=== PATIENT | female | born 1990 | race Caucasian/White ===

== ENCOUNTER 2018-10-12 19:10 | Inpatient (IN) | payer OTHER ==
[2018-10-12] MEDS ORDERED: Sodium Chloride 0.9% 1,000 ML IV STA (20:43)
[2018-10-12 21:12] LABS: BASO % 0.2 % (0.0-2.0); EOS % 0.3 % (0.0-4.0); LYMPH # 1.5 K/uL (1.0-4.3); LYMPH % 16.4 % (20.0-40.0); MEAN CELL VOLUME 83.1 fl (81.0-99.0); MEAN CORPUSCULAR HGB CONC 33.8 g/dL (33.0-37.0); MEAN PLATELET VOLUME 7.8 fl (7.2-11.7); MONO # 0.3 K/uL (0.0-0.8); MONO % 3.6 % (0.0-10.0); NEUT # 7.3 K/uL (1.8-7.0); NEUT % 79.5 % (50.0-75.0); NRBC % 0.1 % (0.0-0.0); RBC 4.63 Mil/uL (3.80-5.20); RED CELL DISTRIBUTION WIDTH 12.1 % (11.5-14.5); WHITE BLOOD COUNT 9.2 K/uL (4.8-10.8)
[2018-10-12 21:23] LABS: BLOOD UREA NITROGEN 7 mg/dl (7-17); CALCIUM 9.3 mg/dL (8.4-10.2); GFR NON-AFRICAN AMERICAN > 60
--- NOTE | 2018-10-12 21:44 | ED PDOC ---
HPI: Abdomen Time Seen by Provider: 10/12/18 19:59 Chief Complaint (Nursing): Abdominal Pain Chief Complaint (Provider): Abdominal Pain History Per: Patient History/Exam Limitations: no limitations Onset/Duration Of Symptoms: Days (x3) Current Symptoms Are (Timing): Still Present Additional Complaint(s): 28 year old female, approximately 4 weeks , is sent from [facility] for an evaluation after recent diagnosis of ectopic on 10/09/18 with initial BETA at 3587. Patient was prescribed Methotrexate on 10/10/18 with BETA noted at 4613. Today, patient reports worsening abdominal pain, vomiting, and heavy bleeding then advised to go to ED for repeat US and labs. Otherwise, she offers no further medical complaints. OBEDIENCE TRAINER: Dr. Velia Clayton [phone] Past Medical History Reviewed: Historical Data, Nursing Documentation, Vital Signs Vital Signs: Last Vital Signs Temp 98.5 F 10/12/18 19:45 Pulse 99 H 10/12/18 19:45 Resp 17 10/12/18 19:45 BP 102/67 10/12/18 19:45 Pulse Ox 98 10/12/18 19:45 Primary Care Provider: Velia Clayton - Medical History PMH: No Chronic Diseases - Surgical History Surgical History: No Surg Hx - Family History Family History: States: Unknown Family Hx - Home Medications Home Medications: Ambulatory Orders Medication Instructions Recorded No Known Home Med 10/12/18 - Allergies Allergies/Adverse Reactions: Allergies Allergy/AdvReac Type Severity Reaction Status Date / Time No Known Allergies Allergy Verified 10/12/18 20:32 Review of Systems ROS Statement: Except As Marked, All Systems Reviewed And Found Negative Gastrointestinal: Positive for: Vomiting, Abdominal Pain Genitourinary Female: Positive for: Vaginal Bleeding (heavy) Physical Exam - Reviewed Nursing Documentation Reviewed: Yes Vital Signs Reviewed: Yes - Physical Exam Appears: Positive for: No Acute Distress Cardiovascular/Chest: Positive for: Regular Rate, Rhythm, Chest Non Tender. Negative for: Murmur, Bradycardia, Tachycardia Respiratory: Positive for: Normal Breath Sounds. Negative for: Wheezing, Respiratory Distress Pulses-Radial (L): 2+ Pulses-Radial (R): 2+ Gastrointestinal/Abdominal: Positive for: Normal Exam, Soft. Negative for: Tenderness Pelvic Exam: Positive for: Other (pelvic deferred) Neurological/Psych: Positive for: Awake, Alert, Normal Tone, Symmetric/Intact Strength. Negative for: Motor/Sensory Deficits - Laboratory Results Result Diagrams: 10/12/18 21:00 10/12/18 21:00 - ECG O2 Sat by Pulse Oximetry: 98 (RA) Pulse Ox Interpretation: Normal Medical Decision Making Medical Decision Making: Time: 2033 Initial Plan: work up for ectopic after Methotrexate. * Labs * IV fluids * Tylenol PO * Zofran inj IVP * US 1st trimester 2312 US OB FINDINGS: GESTATION: No identification of IUP. ENDOMETRIUM: The endometrial thickness is normal measuring 5.0 mm in AP dimension. UTERUS: Unremarkable. No myometrial mass. CERVIX: Closed. Unremarkable. OVARIES: A 1.4 cm hyperechoic hypervascular ring with an anechoic center is seen in the right adnexal region thought compatible with an ectopic gestation. A 2.1 x 1.9 x 2.0 cm left ovarian simple cyst is noted. Several tiny right ovarian follicles are identified. No suspicious mass. FREE FLUID: No free fluid. IMPRESSION: No evidence of IUP. Findings thought compatible with a 1.4 cm right adnexal ectopic gestation. 2.1 cm simple left ovarian cyst. Several tiny right ovarian follicles are noted. Scribe Attestation: Documented by Telma Solomon, acting as a scribe for Collette Abernathy MD. Provider Scribe Attestation: All medical record entries made by the Scribe were at my direction and personally dictated by me. I have reviewed the chart and agree that the record accurately reflects my personal performance of the history, physical exam, medical decision making, and the department course for this patient. I have also personally directed, reviewed, and agree with the discharge instructions and disposition. Disposition - Disposition
[2018-10-13] MEDS ORDERED: Propofol 10 mg/ml Inj (20 ML) ONE (00:40)
[2018-10-13] MEDS ORDERED: Midazolam 2 MG/2 ML VIAL ONE (00:40)
[2018-10-13] MEDS ORDERED: Rocuronium 10 mg/ml (5 ml) ONE (00:40)
[2018-10-13] MEDS ORDERED: Succinylcholine 200 mg/10 ml Inj IV ONE (00:41)
--- NOTE | 2018-10-13 00:45 | CP.PCM.HP ---
<Vijay Barboza - Last Filed: 10/13/18 00:53> History of Present Illness - History of Present Illness History of Present Illness: 28 y/o F, , approximately 4 weeks , sent by [facility] for evaluation and management of ectopic which was diagnosed on 10/09/18. Initial BETA at 3587. Patient was prescribed Methotrexate on 10/10/18 with BETA noted at 4613. Today B HCG is 5995. Today rround 5 pm patient started having right sided lower abdominal pain, constant, 10/10 with associated nausea, vomiting, chills and vaginal bleding. Patient called [facility] office and was advised to come to ER. Denies fever, vaginal discharge, urinary symptoms, dizziness, CP or SOB. DIRECTOR PUBLIC POLICY: Dr. Velia Clayton [phone] PMHx: Denies PSHx: Denies Allergies: NKDA Meds: None Social Hx: Denies smoking/alcohol/drugs F/H: Mother: Thyroid disease ED course: VSS IV fluids Tylenol PO Zofran inj IVP US 1st trimester CBC, CMP unremarkable, BHCG 5995 US Pelvis No evidence of IUP. Findings thought compatible with a 1.4 cm right adnexal ectopic gestation. 2.1 cm simple left ovarian cyst. Several tiny right ovarian follicles are noted. Present on Admission - Present on Admission Any Indicators Present on Admission: No History of DVT/PE: No History of Uncontrolled Diabetes: No Urinary Catheter: No Decubitus Ulcer Present: No Review of Systems - Reproductive: Female Reproductive:Female: Abnormal Vaginal Bleeding Past Patient History - Past Medical History & Family History Past Medical History?: No - Past Social History Smoking Status: Never Smoked - PSYCHIATRIC Hx Emotional Abuse: No Hx Physical Abuse: No Hx Substance Use: No - SURGICAL HISTORY Hx Surgeries: No - ANESTHESIA Hx Anesthesia: No Meds Allergies/Adverse Reactions: Allergies Allergy/AdvReac Type Severity Reaction Status Date / Time No Known Allergies Allergy Verified 10/12/18 20:32 Physical Exam - Constitutional Appears: No Acute Distress - Eye Exam Eye Exam: EOMI, Normal appearance, PERRL - ENT Exam ENT Exam: Mucous Membranes Moist - Respiratory Exam Respiratory Exam: Clear to Auscultation Bilateral, NORMAL BREATHING PATTERN - Cardiovascular Exam Cardiovascular Exam: REGULAR RHYTHM, +S1, +S2 - GI/Abdominal Exam GI & Abdominal Exam: Guarding, Soft, Tenderness. absent: Distended - Expanded Rectal Exam Expanded Expanded Rectal Exam: Deferred - Extremities Exam Extremities exam: Positive for: normal inspection. Negative for: calf tenderness, pedal edema - Neurological Exam Neurological exam: Alert, Oriented x3 - Psychiatric Exam Psychiatric exam: Normal Affect, Normal Mood - Skin Skin Exam: Dry, Intact, Normal Color, Warm Results - Vital Signs Recent Vital Signs: Last Vital Signs Temp 98.5 F 10/12/18 19:45 Pulse 99 H 10/12/18 19:45 Resp 17 10/12/18 19:45 BP 102/67 10/12/18 19:45 Pulse Ox 98 10/12/18 23:50 - Labs Result Diagrams: 10/12/18 21:00 10/12/18 21:00 Labs: Laboratory Results - last 24 hr 10/12/18 10/12/18 10/12/18 21:00 21:00 21:00 WBC 9.2 RBC 4.63 Hgb 13.0 Hct 38.4 MCV 83.1 MCH 28.0 MCHC 33.8 RDW 12.1 Plt Count 335 MPV 7.8 Neut % (Auto) 79.5 H Lymph % (Auto) 16.4 L Hancock % (Auto) 3.6 Eos % (Auto) 0.3 Baso % (Auto) 0.2 Neut # (Auto) 7.3 H Lymph # (Auto) 1.5 Hancock # (Auto) 0.3 Eos # (Auto) 0.0 Baso # (Auto) 0.0 Sodium 139 Potassium 4.1 Chloride 100 Carbon Dioxide 27 Anion Gap 16 BUN 7 Creatinine 0.5 L Est GFR ( Amer) > 60 Est GFR (Non-Af Amer) > 60 Random Glucose 113 H Calcium 9.3 Beta HCG, Quant 5995.10 Blood Type Antibody Screen BBK History Checked 10/12/18 21:00 WBC RBC Hgb Hct MCV MCH MCHC RDW Plt Count MPV Neut % (Auto) Lymph % (Auto) Hancock % (Auto) Eos % (Auto) Baso % (Auto) Neut # (Auto) Lymph # (Auto) Hancock # (Auto) Eos # (Auto) Baso # (Auto) Sodium Potassium Chloride Carbon Dioxide Anion Gap BUN Creatinine Est GFR ( Amer) Est GFR (Non-Af Amer) Random Glucose Calcium Beta HCG, Quant Blood Type A POSITIVE Antibody Screen Negative BBK History Checked No verified bt Assessment & Plan - Assessment and Plan (Free Text) Assessment: 28 y/o F , approximately 4 weeks suspected ectopic , S/P Methotre xate Rx on 10/10/18 presents with severe abdominal pain. Plan: Right sided ectopic - S/P IV fluids, pain meds, Zofran for N/V - CBC, CMP, PT, PTT, B HCG - Plan for OR for surgery java software engineer: Dr. Velia Clayton <Velia Clayton - Last Filed: 10/13/18 02:53> History of Present Illness - History of Present Illness History of Present Illness: Attending note: 28 year old female at 6-7 weeks gestation with ectopic and comp laint of pain, nausea and vomiting after treatment with methotrexate on 10/10/18. Concern for ruptured ectopic . Results - Vital Signs Recent Vital Signs: Last Vital Signs Temp 98.5 F 10/12/18 19:45 Pulse 99 H 10/12/18 19:45 Resp 17 10/12/18 19:45 BP 102/67 10/12/18 19:45 Pulse Ox 98 10/12/18 23:50 - Labs Result Diagrams: 10/12/18 21:00 10/12/18 21:00 Labs: Laboratory Results - last 24 hr 10/12/18 10/12/18 10/12/18 21:00 21:00 21:00 WBC 9.2 RBC 4.63 Hgb 13.0 Hct 38.4 MCV 83.1 MCH 28.0 MCHC 33.8 RDW 12.1 Plt Count 335 MPV 7.8 Neut % (Auto) 79.5 H Lymph % (Auto) 16.4 L Hancock % (Auto) 3.6 Eos % (Auto) 0.3 Baso % (Auto) 0.2 Neut # (Auto) 7.3 H Lymph # (Auto) 1.5 Hancock # (Auto) 0.3 Eos # (Auto) 0.0 Baso # (Auto) 0.0 Sodium 139 Potassium 4.1 Chloride 100 Carbon Dioxide 27 Anion Gap 16 BUN 7 Creatinine 0.5 L Est GFR ( Amer) > 60 Est GFR (Non-Af Amer) > 60 Random Glucose 113 H Calcium 9.3 Beta HCG, Quant 5995.10 Blood Type Antibody Screen BBK History Checked 10/12/18 21:00 WBC RBC Hgb Hct MCV MCH MCHC RDW Plt Count MPV Neut % (Auto) Lymph % (Auto) Hancock % (Auto) Eos % (Auto) Baso % (Auto) Neut # (Auto) Lymph # (Auto) Hancock # (Auto) Eos # (Auto) Baso # (Auto) Sodium Potassium Chloride Carbon Dioxide Anion Gap BUN Creatinine Est GFR ( Amer) Est GFR (Non-Af Amer) Random Glucose Calcium Beta HCG, Quant Blood Type A POSITIVE Antibody Screen Negative BBK History Checked No verified bt
[2018-10-13] MEDS ORDERED: Methylene Blue 10 mg/mL(10ml) IV ONE (01:03)
[2018-10-13] MEDS ORDERED: Lactated Ringer's 1,000 ML IV ONE (01:09)
[2018-10-13] MEDS ORDERED: Neostigmine 1:1000 (1 mg/ml) Inj ONE (02:12)
[2018-10-13] MEDS ORDERED: HYDROmorphone 0.5 mg/0.5 ml ISec IVP PRN (02:36)
[2018-10-13] MEDS ORDERED: Lactated Ringer's 1,000 ML IV SCH ×2 (03:00→05:00)
[2018-10-13] MEDS ORDERED: Oxycodone/Acetaminophen 5/325 mg Tab PO PRN (04:53)
[2018-10-13 08:37] VITALS: BP 105/69
--- NOTE | 2018-10-13 09:00 | US ---
Date of service: 10/12/2018 PROCEDURE: HISTORY: f/u from ectopic preg s/p methotrexate COMPARISON: TECHNIQUE: FINDINGS: The uterus measures 5.4 x 2.7 x 3.1 centimeters in the endometrium measures 5 millimeters. The left ovary measures 4.0 x 2.8 x 3.5 centimeters. There is a 2.1 centimeter left ovarian cyst. The right ovary measures 3.1 x 3.2 centimeters. 1.4 centimeter hypoechoic hypervascular ring with an anechoic center in the right adnexal region possibly representing an ectopic . No evidence of intrauterine . IMPRESSION: As above.
--- NOTE | 2018-10-13 11:29 | CP.PCM.DIS ---
Provider - Provider Date of Admission: 10/12/18 23:14 Attending physician: Velia Clayton Time Spent in preparation of Discharge (in minutes): 30 Diagnosis - Discharge Diagnosis (1) Ectopic Status: Acute Comment: Right adnexal ectopic . S/P rigth salpingectomy 10/13/18 - laparoscopic Hospital Course - Lab Results Lab Results: Most Recent Lab Values WBC 9.2 K/uL (4.8-10.8) 10/12/18 21:00 RBC 4.63 Mil/uL (3.80-5.20) 10/12/18 21:00 Hgb 13.0 g/dL (12.0-16.0) 10/12/18 21:00 Hct 38.4 % (34.0-47.0) 10/12/18 21:00 MCV 83.1 fl (81.0-99.0) 10/12/18 21:00 MCH 28.0 pg (27.0-31.0) 10/12/18 21:00 MCHC 33.8 g/dL (33.0-37.0) 10/12/18 21:00 RDW 12.1 % (11.5-14.5) 10/12/18 21:00 Plt Count 335 K/uL (130-400) 10/12/18 21:00 MPV 7.8 fl (7.2-11.7) 10/12/18 21:00 Neut % (Auto) 79.5 % (50.0-75.0) H 10/12/18 21:00 Lymph % (Auto) 16.4 % (20.0-40.0) L 10/12/18 21:00 Foster % (Auto) 3.6 % (0.0-10.0) 10/12/18 21:00 Eos % (Auto) 0.3 % (0.0-4.0) 10/12/18 21:00 Baso % (Auto) 0.2 % (0.0-2.0) 10/12/18 21:00 Neut # (Auto) 7.3 K/uL (1.8-7.0) H 10/12/18 21:00 Lymph # (Auto) 1.5 K/uL (1.0-4.3) 10/12/18 21:00 Foster # (Auto) 0.3 K/uL (0.0-0.8) 10/12/18 21:00 Eos # (Auto) 0.0 K/uL (0.0-0.7) 10/12/18 21:00 Baso # (Auto) 0.0 K/uL (0.0-0.2) 10/12/18 21:00 Sodium 139 mmol/l (132-148) 10/12/18 21:00 Potassium 4.1 MMOL/L (3.6-5.0) 10/12/18 21:00 Chloride 100 mmol/L (98-107) 10/12/18 21:00 Carbon Dioxide 27 mmol/L (22-30) 10/12/18 21:00 Anion Gap 16 (10-20) 10/12/18 21:00 BUN 7 mg/dl (7-17) 10/12/18 21:00 Creatinine 0.5 mg/dl (0.7-1.2) L 10/12/18 21:00 Est GFR ( Amer) > 60 10/12/18 21:00 Est GFR (Non-Af Amer) > 60 10/12/18 21:00 Random Glucose 113 mg/dL (65-105) H 10/12/18 21:00 Calcium 9.3 mg/dL (8.4-10.2) 10/12/18 21:00 Beta HCG, Quant 5995.10 mIU/mL 10/12/18 21:00 Blood Type A POSITIVE 10/12/18 21:00 Antibody Screen Negative 10/12/18 21:00 BBK History Checked No verified bt 10/12/18 21:00 - Hospital Course Hospital Course: 28 y/o F , approximately 4 weeks suspected ectopic , S/P Methotrexate Rx on 10/10/18 presented with severe abdominal pain. Patient was a febrile, tachycardic when she presented to the ED. Transvaginal U/S demonstrated ectopic in right adnexa. Beta- HC. Patient underwent Laparoscopic ectopic excision (right salpingectomy) on 10/13/[address] Clayton and Dr. Terrell. Patient tolerated procedure. Labs were within normal limits. Patient to follow up with Dr. Clayton within two weeks. Discharge Exam - Head Exam Head Exam: NORMOCEPHALIC - Eye Exam Eye Exam: Normal appearance - ENT Exam ENT Exam: Mucous Membranes Moist - Respiratory Exam Respiratory Exam: Clear to PA & Lateral, NORMAL BREATHING PATTERN, UNREMARKABLE. absent: Accessory Muscle Use, Chest Wall Tenderness, Decreased Breath Sounds, Prolonged Expiratory Phase, Rales, Rhonchi, Wheezes, Respiratory Distress, Stridor - Cardiovascular Exam Cardiovascular Exam: REGULAR RHYTHM, +S1, +S2 - GI/Abdominal Exam GI & Abdominal Exam: Normal Bowel Sounds, Soft, Unremarkable. absent: Distended, Firm, Guarding, Rebound, Rigid, Tenderness Additional comments: 3 incisions noted on abdomen. Clean, dry and intact. No drainage. Steri strips in place. - Neurological Exam Neurological exam: Alert, Oriented x3 - Psychiatric Exam Psychiatric exam: Normal Affect, Normal Mood - Skin Skin Exam: Dry, Intact, Normal Color, Warm Discharge Plan - Follow Up Plan Condition: GOOD Disposition: HOME/ ROUTINE Patient education suggested?: Yes Additional Instructions: Follow up with CHIEF PROJECTIONIST within 2 weeks.
[2018-10-13 12:30] VITALS: PULSE 81; RESP 18; TEMP 99; O2SAT 98
--- NOTE | 2018-10-15 08:45 | OP ---
PROCEDURE DATE: 10/12/2018 PREOPERATIVE DIAGNOSIS: The patient is a 28-year-old G1, P0 female with 6 to 7 weeks' gestation with a right-sided ectopic concerning for rupture. POSTOPERATIVE DIAGNOSIS: Ruptured right ectopic . PROCEDURES: 1. Laparoscopic right salpingectomy. 2. Dilatation and curettage. 3. Chromopertubation. SURGEON: Velia Clayton MD HEALTH SAFETY SPECIALIST: David Terrell MD TYPE OF ANESTHESIA: General endotracheal anesthesia. ANESTHESIA ADMINISTERED BY: David Roth DO IV FLUIDS: 750 mL. URINE OUTPUT: 50 mL. ESTIMATED BLOOD LOSS: Less than 10 mL. COMPLICATIONS: None. SPECIMENS: 1. Right fallopian tube with ectopic . 2. D and C. OPERATIVE FINDINGS: 1. Uterine sound to 7.5 cm with an anteverted uterus. 2. Right ectopic , 2 to 3 cm. 3. Hemoperitoneum 50 mL. 4. Normal patent left fallopian tube. 5. Normal ovaries bilaterally. 6. Normal uterine contour. 7. Normal liver, stomach, and appendix. DESCRIPTION OF PROCEDURE: After proper content was obtained and all questions were answered, the patient was taken to the operating room at [facility]. Adequate general endotracheal anesthesia was administered by Dr. David Roth, and the patient was then placed in a modified dorsal lithotomy position using the Stephan stirrups. Prior to positioning and prior to induction of anesthesia, a set of bilateral lower extremity compression devices were applied to the patient's lower extremity . Correct positioning was performed to prevent nerve injury. An exam under anesthesia was performed by Dr. Clayton with notation of a mobile, small, normal uterus anteverted and fullness of the right adnexa. Sterile prep was performed with Betadine at the perineum and alcohol-based Chloraprep at the abdomen. The surgeon scrubbed and a sterile drape was performed in the usual fashion. Attention was directed to the perineum. A Moss catheter was placed atraumatically with return of clear yellow urine. The weighted speculum was placed in the posterior fornix of the vagina and a right-angled retractor to the anterior fornix. Cervix was visualized and the tenaculum was used to grasp the anterior lip of the cervix. The cervix was posteriorly dilated using the Hanks dilators to accommodate the HUMI manipulator. The uterine sound was performed with a notation of 7.5 cm. A gentle mechanical D and C was performed with notation of minimal endometrial tissue. The HUMI manipulator was placed to depth of 6.25 cm. The tenaculum was removed and all instruments were removed from the vagina. The patient was placed level and attention was directed to the abdomen. The surgeon changed gloves and attention was directed to the umbilicus. Two perforating towel clamps were placed bilaterally at the umbilicus and a 5 mm vertical incision was made at the inferior umbilical edge. The Veress needle was then used to place into the abdominal cavity. Carbon dioxide gas was applied with a notation of an opening pressure of 2 mmHg. The abdomen was insufflated to a pressure of 15 mmHg with notation of tympanic distention in all four quadrants. A 5 mm Optiview trocar was repaired with the camera. The Veress needle was removed and the 5 mm trocar was placed directly into the abdomen under direct visualization. The trocar obturator was removed as well as the bilateral perforating towel clamps and carbon dioxide gas was applied to the trocar. A camera was placed into the abdomen with notation of findings as noted above. The abdomen was surveyed and a normal liver edge and stomach were noted. The pelvis was visualized with a notation of free hemoperitoneum. The patient was then placed into a Trendelenburg and the uterus was elevated. The cul-de-sac was noted for 50 mL of hemoperitoneum with clot. The right fallopian tube was noted to have a right ectopic 2 to 3 cm at the mid to distal end of the fallopian tube. This was noted to be bleeding. The left fallopian tube was noted to be normal and the ovaries bilaterally were noted to be normal. No adhesions were noted in the pelvic cul-de-sac. The uterine contour was normal appearing as well. Two bilateral lower quadrant incisions were made and 5 mm trocars were placed bluntly under direct visualization. Through these lower quadrant bilateral trocars, the LigaSure cautery and the blunt grasper were used to elevate the end of the fallopian tube on the right. The fallopian tube was then cauterized and dissected using the LigaSure bipolar cautery. This was carried from the distal fallopian tube and towards the uterine wall along the mesosalpinx. Hemostasis was noted throughout the entire dissection and the fallopian tube was completely removed. The fallopian tube was then removed through the left lower quadrant trocar and it was noted that a small amount of tissue was expressed through the fallopian tube at this time. A grasper was used to then remove the small amount of tissue from the abdomen. These were all sent to pathology together. The left lower quadrant trocar was then replaced and pelvis was inspected. Copious irrigation was performed to remove any remaining hemoperitoneum. Methylene blue dye was diluted into 250 mL of fluid normal saline. This diluted dye was then placed through the HUMI manipulator and through the left fallopian tube. The left fallopian tube was noted to be patent with free flow of methylene blue dye. No adhesions were noted at the fallopian tube. The dye was then irrigated and suctioned out of the pelvis. The appendix was then inspected and noted to have a normal tip. All other structures appeared to be normal. The bilateral lower quadrant trocars were then removed under direct visualization. The abdomen was desufflated and the umbilical trocar was then removed as well. All incisions were then closed with 4-0 Monocryl, Steri-Strips, and Tegaderm. The patient was transferred to the recovery room in good condition and she will follow up with Dr. Velia Clayton in two weeks' time. All specimens were sent to pathology and no complications were noted. Velia Clayton MD
== END 2018-10-13 13:45 | disposition home or self-care (01) | DRG 817 ==
LOC: H.ER 19:10 → H.ERHOLD 23:14 → H.PEDS 10-13 04:43
PROVIDERS: ADMIT Obstetrics & Gynecology Reproductive Endocrinology; ATTEND Obstetrics & Gynecology Reproductive Endocrinology
PROC: 3E0P4GC Introduction of Other Therapeutic Substance into Female Reproductive, Percutaneous Endoscopic Approach (ICD-10-PCS; 2018-10-13)
PROC: 0UT54ZZ Resection of Right Fallopian Tube, Percutaneous Endoscopic Approach (ICD-10-PCS; principal; 2018-10-13 01:00)
PROC: 10D28ZZ Extraction of Products of Conception, Ectopic, Via Natural or Artificial Opening Endoscopic (ICD-10-PCS; 2018-10-13 01:00)
DX: O00.90 Unspecified ectopic pregnancy without intrauterine pregnancy (principal); K66.1 Hemoperitoneum; N83.292 Other ovarian cyst, left side; N85.4 Malposition of uterus; O21.9 Vomiting of pregnancy, unspecified; Z3A.01 Less than 8 weeks gestation of pregnancy